=== PATIENT | male | born 2000 | race American Indian/Alaskan Native ===

== ENCOUNTER 2021-08-19 11:14 | Emergency (ER) | payer SELFPAY ==
[2021-08-19 11:23] VITALS: BP 147/95
--- NOTE | 2021-08-19 13:54 | Event Note ---
ED Screening Note Date of service: 08/19/21 Time: 13:51 ED Screening Note: 21-year-old black male with no past medical history and no known family history of CAD presents to the emergency department for evaluation of 1 week history of chest pain. He states that last Thursday after smoking weed with tobacco paper, he had sudden onset of left arm and chest pain with nausea and vomiting and states that since then he has had intermittent left chest pain with palpitations. He states that pain is associated with some shortness of breath but he denies nausea, dizziness, and diaphoresis. He states that pain is worse is 8.5 out of 10. He states that over the last week he has also had shortness of breath on exertion. This initial assessment/diagnostic orders/clinical plan/treatment(s) is/are subject to change based on patients health status, clinical progression and re- assessment by fellow clinical providers in the ED. Further treatment and workup at subsequent clinical providers discretion. Patient/guardian urged not to elope from the ED as their condition may be serious if not clinically assessed and managed. Initial orders include: CBC, CMP, BNP, troponin, UA, chest x-ray
[2021-08-19 14:08] LABS: Hematocrit 47.7 % (35.5-45.6); Hemoglobin 15.9 gm/dl (11.8-15.2); Mean Corpuscular HGB Conc 33 % (32-34); Mean Corpuscular Volume 88 fl (84-94); Platelet Count 257 K/mm3 (140-440); Red Blood Count 5.46 M/mm3 (3.65-5.03)
--- NOTE | 2021-08-19 14:14 | XRay Report ---
CHEST 2 VIEWS INDICATION / CLINICAL INFORMATION: chest pain. COMPARISON: None available. FINDINGS: SUPPORT DEVICES: None. HEART / MEDIASTINUM: No significant abnormality. LUNGS / PLEURA: No significant pulmonary or pleural abnormality. No pneumothorax. ADDITIONAL FINDINGS: No significant additional findings. IMPRESSION: 1. No acute findings. Signer Name: Carrillo Mueller DO Signed: 08/19/2021 2:09 PM Workstation Name: [id number]
[2021-08-19 14:31] LABS: Alanine Aminotransferase 21 units/L (7-56); Albumin 4.9 g/dL (3.9-5); BUN/Creatinine Ratio 10; Blood Urea Nitrogen 9 mg/dL (9-20); Hemolysis Index 11
[2021-08-19 14:34] LABS: Bilirubin,Urine NEG (Negative); Blood,Urine NEG (Negative); Color,Urine Amber (Yellow); Mucus,Urine 2+ /HPF
--- NOTE | 2021-08-19 15:32 | Emergency Department Report ---
ED General Adult HPI - General Chief complaint: Chest Pain Stated complaint: CHEST PAIN Time Seen by Provider: 08/19/21 13:28 Source: patient Mode of arrival: Ambulatory Limitations: No Limitations - History of Present Illness Initial comments: Patient is a 21-year-old male presents emergency with complaints of palpitations that began 1 week ago. Patient states that his palpitations began while he was smoking marijuana. He states 1 week ago he was smoking marijuana began having nausea and had one episode of vomiting and felt the palpitations and states that his left shoulder was giving him pain. He states that the pain was radiating to his left chest from his shoulder. He denies any fall or injury or heavy lifting. He denies any pleuritic pain, leg swelling, calf pain, hemoptysis, cough, chills, fever, diarrhea. He denies any recent travel, recent surgery, known sick contacts, hormone use. He denies any past medical history. He denie s any family history of CAD. No allergies to medications. He does endorse tobacco use as well. Patient states he drinks coffee daily. Patient states he has had a lot of increased stress with his job and his girlfriend over the last 3 weeks. - Related Data Allergies Allergy/AdvReac Type Severity Reaction Status Date / Time No Known Allergies Allergy Verified 08/19/21 11:23 ED Review of Systems ROS: Stated complaint: CHEST PAIN Other details as noted in HPI Comment: All other systems reviewed and negative ED Past Medical Hx - Past Medical History Previous Medical History?: No ED Physical Exam - General Limitations: No Limitations General appearance: alert, in no apparent distress - Head Head exam: Present: atraumatic, normocephalic - Eye Eye exam: Present: normal appearance - ENT ENT exam: Present: mucous membranes moist - Respiratory Respiratory exam: Present: normal lung sounds bilaterally. Absent: respiratory distress, wheezes, rales, rhonchi, stridor, chest wall tenderness, accessory muscle use, decreased breath sounds, prolonged expiratory - Cardiovascular Cardiovascular Exam: Present: regular rate, normal rhythm, normal heart sounds. Absent: systolic murmur, diastolic murmur, rubs, gallop - Extremities Exam Extremities exam: Present: normal inspection, full ROM. Absent: tenderness - Neurological Exam Neurological exam: Present: alert, oriented X3 - Psychiatric Psychiatric exam: Present: normal affect, normal mood - Skin Skin exam: Present: warm, dry, intact ED Course Vital Signs 08/19/21 11:20 Temperature 98.3 F Pulse Rate 96 H Respiratory 16 Rate Blood Pressure 147/95 O2 Sat by Pulse 98 Oximetry ED Medical Decision Making - Lab Data Result diagrams: 08/19/21 13:56 08/19/21 13:55 Lab Results 08/19/21 08/19/21 08/19/21 Range/Units 13:55 13:56 Unknown WBC 7.5 (4.5-11.0) K/mm3 RBC 5.46 H (3.65-5.03) M/mm3 Hgb 15.9 H (11.8-15.2) gm/dl Hct 47.7 H (35.5-45.6) % MCV 88 (84-94) fl MCH 29 (28-32) pg MCHC 33 (32-34) % RDW 13.0 L (13.2-15.2) % Plt Count 257 (140-440) K/mm3 Sodium 136 L (137-145) mmol/L Potassium 4.2 (3.6-5.0) mmol/L Chloride 97.1 L (98-107) mmol/L Carbon Dioxide 20 L (22-30) mmol/L Anion Gap 23 mmol/L BUN 9 (9-20) mg/dL Creatinine 0.9 (0.8-1.3) mg/dL Estimated GFR > 60 ml/min BUN/Creatinine Ratio 10 % Glucose 69 L (75-100) mg/dL Calcium 10.0 (8.4-10.2) mg/dL Magnesium (1.7-2.3) mg/dL Total Bilirubin 1.00 (0.1-1.2) mg/dL AST 23 (5-40) units/L ALT 21 (7-56) units/L Alkaline Phosphatase 82 (35-129) units/L Troponin T < 0.010 (0.00-0.029) ng/mL NT-Pro-B Natriuret Pep 10.49 (0-450) pg/mL Total Protein 8.2 (6.3-8.2) g/dL Albumin 4.9 (3.9-5) g/dL Albumin/Globulin Ratio 1.5 % Urine Color Zabrina (Yellow) Urine Turbidity Clear (Clear) Urine pH 6.0 (5.0-7.0) Ur Specific [place] 1.033 H (1.003-1.030) Urine Protein 100 mg/dl (Negative) mg/dL Urine Glucose (UA) Neg (Negative) mg/dL Urine Ketones 80 (Negative) mg/dL Urine Blood Neg (Negative) Urine Nitrite Neg (Negative) Urine Bilirubin Neg (Negative) Urine Urobilinogen 4.0 (<2.0) mg/dL Ur Leukocyte Esterase Neg (Negative) Urine WBC (Auto) 2.0 (0.0-6.0) /HPF Urine RBC (Auto) 1.0 (0.0-6.0) /HPF U Epithel Cells (Auto) < 1.0 (0-13.0) /HPF Urine Mucus 2+ /HPF 08/19/21 Range/Units Unknown WBC (4.5-11.0) K/mm3 RBC (3.65-5.03) M/mm3 Hgb (11.8-15.2) gm/dl Hct (35.5-45.6) % MCV (84-94) fl MCH (28-32) pg MCHC (32-34) % RDW (13.2-15.2) % Plt Count (140-440) K/mm3 Sodium (137-145) mmol/L Potassium (3.6-5.0) mmol/L Chloride (98-107) mmol/L Carbon Dioxide (22-30) mmol/L Anion Gap mmol/L BUN (9-20) mg/dL Creatinine (0.8-1.3) mg/dL Estimated GFR ml/min BUN/Creatinine Ratio % Glucose (75-100) mg/dL Calcium (8.4-10.2) mg/dL Magnesium 1.90 (1.7-2.3) mg/dL Total Bilirubin (0.1-1.2) mg/dL AST (5-40) units/L ALT (7-56) units/L Alkaline Phosphatase (35-129) units/L Troponin T (0.00-0.029) ng/mL NT-Pro-B Natriuret Pep (0-450) pg/mL Total Protein (6.3-8.2) g/dL Albumin (3.9-5) g/dL Albumin/Globulin Ratio % Urine Color (Yellow) Urine Turbidity (Clear) Urine pH (5.0-7.0) Ur Specific [place] (1.003-1.030) Urine Protein (Negative) mg/dL Urine Glucose (UA) (Negative) mg/dL Urine Ketones (Negative) mg/dL Urine Blood (Negative) Urine Nitrite (Negative) Urine Bilirubin (Negative) Urine Urobilinogen (<2.0) mg/dL Ur Leukocyte Esterase (Negative) Urine WBC (Auto) (0.0-6.0) /HPF Urine RBC (Auto) (0.0-6.0) /HPF U Epithel Cells (Auto) (0-13.0) /HPF Urine Mucus /HPF - EKG Data EKG shows normal: sinus rhythm, axis, intervals, QRS complexes, ST-T waves Rate: normal - Radiology Data Radiology results: report reviewed Ordering Physician: GARTH SEARS Date of Service: 08/19/21 Procedure(s): XR chest routine 2V Accession Number(s): [id number] cc: GARTH SEARS Fluoro Time In Minutes: CHEST 2 VIEWS INDICATION / CLINICAL INFORMATION: chest pain. COMPARISON: None available. FINDINGS: SUPPORT DEVICES: None. HEART / MEDIASTINUM: No significant abnormality. LUNGS / PLEURA: No significant pulmonary or pleural abnormality. No pneumothorax. ADDITIONAL FINDINGS: No significant additional findings. IMPRESSION: 1. No acute findings. Signer Name: Carrillo Bower DO Signed: 08/19/2021 2:09 PM Workstation Name: [id number] Transcribed By: VASQUEZ Dictated By: CARRILLO BOWER DO Electronically Authenticated By: CARRILLO BOWER DO Signed Date/Time: 08/19/211408 DD/ 08 TD/TT: - Medical Decision Making Patient is a 21-year-old male presents emergency with complaints of palpitations that began 1 week ago. Patient states that his palpitations began while he was smoking marijuana. He states 1 week ago he was smoking marijuana began having nausea and had one episode of vomiting and felt the palpitations and states that his left shoulder was giving him pain. He states that the pain was radiating to his left chest from his shoulder. He denies any fall or injury or heavy lifting. He denies any pleuritic pain, leg swelling, calf pain, hemoptysis, cough, chills, fever, diarrhea. He denies any recent travel, recent surgery, known sick contacts, hormone use. He denies any past medical history. He denies any family history of CAD. No allergies to medications. He does endorse tobacco use as well. Patient states he drinks coffee daily. Patient states he has had a lot of increased stress with his job and his girlfriend over the last 3 weeks. vitals are normal. EKG within normal limits. CXR 1. No acute findings. labs and urine with mild dehydration otherwise stable pt is tolerating PO intake advised to increase fluids and to eat balanced meals. heart score is 2, low risk for cardiac event. PERC criteria negative for PE, PE unlikely. advised pt Please increase your water intake over the next several days. Please avoid tobacco and marijuana use. Please avoid caffeine use. Follow-up with a primary care doctor. Follow-up with a civil division commander deputy sheriff. Return to emergency room for any new or worsening symptoms. Critical care attestation.: If time is entered above; I have spent that time in minutes in the direct care of this critically ill patient, excluding procedure time. ED Disposition Clinical Impression: Palpitations, Dehydration Chest pain Qualifiers: Chest pain type: unspecified Qualified Code(s): R07.9 - Chest pain, unspecified Left shoulder pain Qualifiers: Chronicity: acute Qualified Code(s): M25.512 - Pain in left shoulder Disposition: 01 HOME / SELF CARE / HOMELESS Is pt being admited?: No Does the pt Need Aspirin: No Condition: Stable Instructions: Nonspecific Chest Pain, Adult, Palpitations, [id number] Additional Instructions: Please increase your water intake over the next several days. Please avoid tobacco and marijuana use. Please avoid caffeine use. Follow-up with a primary care doctor. Follow-up with a civil division commander deputy sheriff. Return to emergency room for any new or worsening symptoms. Referrals: VILMA COATES MD [Staff Physician] - 3-5 Days [facility] [Provider Group] - 3-5 Days RAZA CHE MD [Staff Physician] - 3-5 Days (cardiology, credit administration specialist) Time of Disposition: 15:30 Print Language: SPANISH HEART Score - HEART Score History: Moderately suspicious EKG: Normal Age: < 45 Risk factors: 1-2 risk factors Troponin: Troponin T < 0.010 ng/mL (0.00-0.029) 08/19/21 13:55 Troponin: < normal limit HEART Score: 2
--- NOTE | 2021-08-20 11:50 | Electrocardiograph Report ---
[facility] Test Date: 2021-08-19 Test Time: 11:14:23 Pat Name: KRISTI FREEMAN Department: Room: Gender: M Excel Expert: LAUREN : 2000 Requested By: CHRISTINA FALCON Order Number: [id number] Reading MD: Corey Bryne Measurements Intervals Shelley Rate: 90 P: 65 TX: 127 QRS: 63 QRSD: 92 T: 20 QT: 344 QTc: 421 Interpretive Statements Sinus rhythm No previous ECG available for comparison Electronically Signed On 08-20-2021 11:50:23 EDT by Corey Byrne
== END 2021-08-19 16:00 | disposition home or self-care (01) ==
LOC: ED 11:14
DX: R00.2 Palpitations (principal); E86.0 Dehydration; R07.9 Chest pain, unspecified; M25.512 Pain in left shoulder
CPT/HCPCS: 36415; 71046; 80053; 81001; 83735; 83880; 84484; 85027; 93005; 99284